=== PATIENT | female | born 1975 | race Caucasian/White ===

== ENCOUNTER 2025-06-23 15:33 | Inpatient (IN) | payer OTHER, SELFPAY ==
[2025-06-23] VITALS (14 sets, daily range): BP systolic 137–176; BP diastolic 77–89; PULSE 47–72; RESP 12–37; TEMP 36.5; O2SAT 93–100; BMI 27.3
--- NOTE | 2025-06-23 | DI.MRI.S_ITS ---
PROCEDURE: MR AB PANCREATIC/MRCP PROTOCOL INDICATIONS: Elevated liver enzymes gallstones TECHNIQUE: Coronal HASTE through the abdomen, axial 2-D FLASH in- and [id number], and breath-hold T2 FSE with fat saturation through the biliary system and pancreas. Oblique coronal and axial thin-slice HASTE, radial thick-slab HASTE centered on the extrahepatic bile ducts. Intravenous secretin: Not requested. COMPARISON: [facility], CT, CT ABDOMEN PELVIS W CON, 06/23/2025, 20:15. FINDINGS: Image quality: Diagnostic. Gallbladder: Numerous gallstones included impacted gallbladder neck stones. Gallbladder distension with gallbladder wall thickening and edema. Findings may represent acute cholecystitis. Biliary ducts: Although the biliary tree is not dilated, there are multiple small distal common duct stones. Pancreas: No ductal dilation. OTHER: Lung bases: Unremarkable. Liver: No solid mass. Spleen: Size is within normal limits. Adrenal Glands: No adrenal nodules. Kidneys and Ureters: No hydronephrosis. No solid mass. No complex renal cystic lesion which requires follow up. Stomach and Bowel: Normal colonic caliber, without significant wall thickening. Peritoneum: No abnormal intraperitoneal fluid. No free air. Ventral Wall: No hernia. Abdominal Nodes: No retroperitoneal or mesenteric adenopathy by size criteria. Vessels: Aorta and inferior vena cava are normal in size. Bones: No aggressive osseous abnormality. IMPRESSION: 1. Findings are supportive of a potential clinical diagnosis of acute cholecystitis. There are numerous gallstones with impacted stones in the gallbladder neck. There is gallbladder distension and there is gallbladder wall thickening and edema. 2. Multiple small distal common duct stones are present. There is no biliary ductal dilatation currently. Dictated by: Rod Charles M.D. on 06/24/2025 at 11:07 Approved by: Rod Charles M.D. on 06/24/2025 at 11:09
[2025-06-23 17:21] LABS: Ictotest Urine Positive (Negative)
--- NOTE | 2025-06-23 19:15 | EKG_ITS ---
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
[2025-06-23 19:27] LABS: Culture Indicated Urine Cult Not Indicated
[2025-06-23] MEDS: ONDANSETRON 4 MG/2 ML INJ IV (19:35)
--- NOTE | 2025-06-23 19:46 | DI.CT.S_ITS ---
PROCEDURE: CT ABDOMEN PELVIS W CON INDICATIONS: abd pain, RUQ worse, but tender lower quadrants as well TECHNIQUE: After the administration of intravenous contrast, axial sections acquired from the lung bases to the pubic symphysis. Coronal and sagittal reformats were performed. For radiation dose reduction, the following was used: automated exposure control, adjustment of mA and/or kV according to patient size. COMPARISON: None. FINDINGS: Image quality: Diagnostic. Lower Chest: No significant findings. ABDOMEN: Liver: No solid mass. Steatosis. Gallbladder: Dependent luminal stones without wall thickening. Biliary ducts: No biliary dilation. Pancreas: No ductal dilation. Spleen: Size is within normal limits. Adrenal Glands: No adrenal nodules. Kidneys and Ureters: No hydronephrosis. Simple left renal cyst. Stomach and Bowel: Normal colonic caliber, without significant wall thickening. Peritoneum: Dependent pelvic fluid. No free air. Ventral Wall: No significant ventral hernia. Abdominal Nodes: No retroperitoneal or mesenteric adenopathy by size criteria. Vessels: Aorta and inferior vena cava are normal in size. PELVIS: Pelvic Organs: Uterus is enlarged and lobulated. Bladder: No bladder wall thickening, accounting for underdistention. Pelvic Nodes: No enlarged lymph nodes. Miscellaneous: No inguinal hernias are seen. Bones: No aggressive osseous abnormality. IMPRESSION: Cholelithiasis without imaging appearance of cholecystitis. Enlarged lobulated uterus suggestive of fibroids. Dictated by: Zari Richardson M.D. on 06/23/2025 at 20:40 Approved by: Zari Richardson M.D. on 06/23/2025 at 20:47
[2025-06-23 19:47] LABS: Carbon Dioxide 24 mmol/L (22-32); HEMOLYSIS < 15 (0-50)
[2025-06-23 19:51] LABS: Albumin 4.3 g/dL (3.5-5.0); Albumin Globulin Ratio 1.2 (1.0-2.8); Alkaline Phosphatase 193 U/L (38-126); Blood Urea Nitrogen 14 mg/dL (7-17); Calcium 9.3 mg/dL (8.4-10.2); Chloride 104 mmol/L (98-107); Estimated Glomerular Filt Rate > 60 mL/min (>60); Globulin 3.5 g/dL (1.7-4.1); Glucose 111 mg/dL (70-99); Lipase 303 U/L (23-300); Potassium 4.0 mmol/L (3.4-5.1); Sodium 137 mmol/L (137-145); Total Protein 7.8 g/dL (6.3-8.2)
[2025-06-23 19:55] LABS: Add Manual Diff / Slide Review NO; Hematocrit 42.7 % (36-46); Hemoglobin 14.2 g/dL (12.0-16.0); Lymphocytes Absolute Auto 1600 /uL (1100-4500); Mean Corpuscular HGB Conc 33.3 % (30-36); Mean Corpuscular Hemoglobin 29.6 PG (26-34); Mean Corpuscular Volume 88.9 fL (80-100); Platelet Count 374 X10^3/uL (150-400)
[2025-06-23] MEDS: SODIUM CHLORIDE 0.9% 1,000 ML 1000 ML IV (19:55)
[2025-06-23 19:57] LABS: Alanine Aminotransferase 829 IU/L (<35)
[2025-06-23 20:01] LABS: Magnesium 1.8 mg/dL (1.6-2.3)
--- NOTE | 2025-06-23 20:33 | ED.GENADULT ---
HPI - General Adult General Chief complaint: Abdominal Pain Stated complaint: abd pain, nausea, vomiting Time Seen by Provider: 06/23/25 19:09 Source: patient Mode of arrival: Family Vehicle History of Present Illness HPI narrative: 50-year-old woman with history of alcohol use disorder who has been sober since October presents complaining of severe abdominal pain. She notes she has lost 70 lb since she has stopped drinking and made significant dietary changes. She complains of episodes of recurrent bloating and right upper quadrant pain. Occurs after eating non fat foods as well as fatty foods. Over the last 4 days that is significantly worse with dry heaving but no overt vomiting. She describes increasing abdominal bloating and significant tenderness. No fevers, she is passing gas. She has not had this evaluated at all in the year that she has been having symptoms Related Data Home Medications ?Medication ?Instructions ?Recorded ?Confirmed fluconazole 150 mg tablet mg PO 06/23/25 06/23/25 mupirocin 2 % topical ointment 1 applic topical 3XD 06/23/25 06/23/25 omeprazole 20 mg capsule,delayed 20 mg PO DAILY 06/23/25 06/23/25 release triamcinolone acetonide 0.025 % 1 applic topical BID 06/23/25 06/23/25 topical cream Allergies Allergy/AdvReac Type Severity Reaction Status Date / Time bacitracin (From Neosporin AdvReac Mild Verified 06/23/25 19:34 ([id number])) neomycin (From Neosporin AdvReac Mild Verified 06/23/25 19:34 ([id number])) polymyxin B (From Neosporin AdvReac Mild Verified 06/23/25 19:34 ([id number])) Review of Systems Review of Systems Narrative: Pertinent positive and negative findings as per HPI Patient History Medical History (Updated 06/23/25 @ 23:03 by Alex Choe DO) Alcoholism Exam Initial Vital Signs Initial Vital Signs: Vital Signs Temperature 97.7 F 06/23/25 15:57 Pulse Rate 51 L 06/23/25 15:57 Respiratory Rate 16 06/23/25 15:57 Blood Pressure 137/77 06/23/25 15:57 Pulse Oximetry 98 06/23/25 15:57 Oxygen Delivery Method Room Air 06/23/25 15:57 General: Healthy appearing, in significant pain but Able to give a complete and coherent history. Well-nourished well-developed HEENT: Moist mucous membranes, normal sclera with reactive pupils, Respiratory: Lungs are clear to auscultation, no wheezing no rales no rhonchi. Full and symmetrical air movement Cardiac: Regular rate and rhythm no murmurs no bruits Abdomen: Soft, significant right upper quadrant tenderness without rebound or guarding. Mild overall distention and moderate pain in the lower pelvic area bilaterally. No flank pain Skin: Warm and dry, no rashes Neurologic: Grossly neurologically intact with no obvious asymmetries or abnormalities Extremities: No trauma, well perfused Psych: Cooperative, appropriate insight and affect Course Orders Ordered: ED Orders 06/23/25 16:51 EKG-12 Lead Stat 06/23/25 17:06 Ictotest Urine Stat Urine Microscopic Stat 06/23/25 19:28 Complete Blood Count AUTO DIFF Stat Comprehensive Metabolic Panel Stat Lipase Stat 06/23/25 19:33 Magnesium Stat 06/23/25 19:46 CT abdomen pelvis w con Stat Hydromorphone HCl (Hydromorphone Hcl 0.5 Mg/0.5 Ml Syringe) 0.5 mg IV Q15MIN PRN PRN Reason: Pain, Last Admin: 06/23/25 22:16 Dose: 0.5 mg Documented By: Admin: 06/23/25 19:55 Dose: 0.5 mg Documented By: CHELO Ondansetron HCl (Ondansetron 4 Mg/2 Ml Inj) 4 mg IV NOW PRN PRN Reason: Nausea And Vomiting Last Admin: 06/23/25 19:35 Dose: 4 mg Documented By: CHELO Ondansetron HCl (Ondansetron 4 Mg Odt) 4 mg PO NOW PRN PRN Reason: Nausea And Vomiting Discontinued Medications Sodium Chloride (Normal Saline 0.9%) 1,000 mls @ 1,000 mls/hr IV BOLUS ONE Stop: 06/23/25 20:44 Last Infusion: 06/23/25 21:09 Dose: Infused Documented By: Admin: 06/23/25 19:55 Dose: 1,000 mls/hr Documented By: CHELO Ondansetron HCl (Ondansetron 4 Mg/2 Ml Inj) 4 mg IV NOW ONE Stop: 06/23/25 19:46 Last Admin: 06/23/25 22:30 Dose: Not Given Documented By: [facility] Vital Signs Vital signs: Vital Signs - 8 hr 06/23/25 15:57 06/23/25 19:07 06/23/25 19:07 Temperature 97.7 F Pulse Rate 51 L 55 L Respiratory Rate 16 18 Blood Pressure 137/77 172/83 H Pulse Oximetry 98 93 Oxygen Delivery Method Room Air Room Air 06/23/25 19:30 06/23/25 19:50 06/23/25 19:50 Temperature Pulse Rate 72 50 L Respiratory Rate 37 H 16 Blood Pressure 171/88 H Pulse Oximetry 100 99 Oxygen Delivery Method 06/23/25 20:00 06/23/25 20:01 06/23/25 20:01 Temperature Pulse Rate 53 L 51 L Respiratory Rate 31 H 24 Blood Pressure 158/79 H Pulse Oximetry 99 100 Oxygen Delivery Method 06/23/25 20:28 06/23/25 20:28 06/23/25 20:30 Temperature Pulse Rate 50 L 52 L Respiratory Rate 12 18 Blood Pressure 168/87 H Pulse Oximetry 99 99 Oxygen Delivery Method 06/23/25 20:30 06/23/25 21:00 06/23/25 21:00 Temperature Pulse Rate 49 L Respiratory Rate 23 Blood Pressure 166/89 H 168/86 H Pulse Oximetry 96 Oxygen Delivery Method Room Air 06/23/25 21:30 06/23/25 21:30 Temperature Pulse Rate 47 L Respiratory Rate 15 Blood Pressure 163/77 H Pulse Oximetry 96 Oxygen Delivery Method Room Air Medical Decision Making Lab Data 06/23/25 19:28 06/23/25 19:28 Labs: Lab Results 06/23/25 06/23/25 06/23/25 Range/Units 17:06 19:28 19:33 WBC 10.5 (4.5-11.0) X10^3/uL RBC 4.81 (4.0-5.2) X10^6/uL Hgb 14.2 (12.0-16.0) g/dL Hct 42.7 (36-46) % MCV 88.9 (80-100) fL MCH 29.6 (26-34) PG MCHC 33.3 (30-36) % RDW 14.4 (11.6-14.8) % Plt Count 374 (150-400) X10^3/uL Neut % (Auto) 76.2 H (50-75) % Lymph % (Auto) 15.7 L (25-40) % [place] % (Auto) 6.9 (3-14) % Eos % (Auto) 0.5 L (2-4) % Baso % (Auto) 0.7 (0-2) % Neut # (Auto) 8000 H (4323-5169) /uL Lymph # (Auto) 1600 (0730-7384) /uL [place] # (Auto) 700 (0-900) /uL Eos # (Auto) 0 (0-450) /uL Baso # (Auto) 100 (0-100) /uL Sodium 137 (137-145) mmol/L Potassium 4.0 (3.4-5.1) mmol/L Chloride 104 (98-107) mmol/L Carbon Dioxide 24 (22-32) mmol/L BUN 14 (7-17) mg/dL Creatinine 0.83 (0.52-1.04) mg/dL Estimated GFR > 60 (>60) mL/min BUN/Creatinine Ratio 16.9 (6-22) Glucose 111 H (70-99) mg/dL Calcium 9.3 (8.4-10.2) mg/dL Magnesium 1.8 (1.6-2.3) mg/dL Total Bilirubin 2.9 H (0.2-1.3) mg/dL AST 640 H (14-36) IU/L ALT 829 H (<35) IU/L Alkaline Phosphatase 193 H (38-126) U/L Total Protein 7.8 (6.3-8.2) g/dL Albumin 4.3 (3.5-5.0) g/dL Globulin 3.5 (1.7-4.1) g/dL Albumin/Globulin Ratio 1.2 (1.0-2.8) Lipase 303 H (23-300) U/L Ur Bilirubin Confirm Positive H (Negative) Urine RBC 0-1/hpf (0-5/HPF) Urine WBC 0-1/hpf (0-5/HPF) Ur Squamous Epith Cells 1-5 /hpf (0-5/HPF) Urine Bacteria Moderate (10-30) H (None) Urine Mucus 1+ H (Negative) Ur Culture Indicated? Cult not indicated Vol Urine Centrifuged 10ml (spun) Point of Care Testing Test Results Negative Urine Dip Bedside Urine Glucose 100 mg/dl Bedside Urine Bilirubin ++ 2 Bedside Urine Ketone +/- 5 Urine Specific [place] 1.025 Bedside Urine Occult Blood - Negative Bedside Urine pH 6.0 Bedside Urine Protein +/- 15 Bedside Urine Urobilinogen 1+ 2mg Bedside Urine Nitrite - Negative Bedside Urine Leukocytes +/- 15 Esterase Point of care testing: Point of Care Testing Test Results Negative Urine Dip Bedside Urine Glucose 100 mg/dl Bedside Urine Bilirubin ++ 2 Bedside Urine Ketone +/- 5 Urine Specific [place] 1.025 Bedside Urine Occult Blood - Negative Bedside Urine pH 6.0 Bedside Urine Protein +/- 15 Bedside Urine Urobilinogen 1+ 2mg Bedside Urine Nitrite - Negative Bedside Urine Leukocytes +/- 15 Esterase MDM Narrative Medical decision making narrative: CC: Abdominal pain Complicating co-morbidities: Alcohol use disorder no alcohol since October, lb weight loss with diet and lifestyle changes Data collected from: patient Medical records reviewed: None are available Differential considered: Gallbladder disease, bowel obstruction, neoplastic process, doubt pelvic inflammatory disease, colitis Exam documented above, pertinent findings include: Abdomen is distended, she has significant in the right upper quadrant without rebound or guarding less tender but still notable in both left and right lower quadrant. Lab Test results independently reviewed as above. Pertinent findings: CBC is unremarkable, no leukocytosis or anemia Metabolic panel shows normal renal function Magnesium normal at 1.8 Liver studies were significantly abnormal with bilirubin at 2.9, AST is 640, ALT at 8:29 a.m., alk-phos of 193. Lipase is minimally elevated at 303 Urine has bilirubin bacteria and mucus, I do not suspect urinary tract infection at this time Urine test is negative Independently reviewed EKG: EKG shows sinus bradycardia at a rate of 50 with no ischemic changes Imaging studies independently reviewed: CT scan shows cholelithiasis without appearance of acute cholecystitis. There is no biliary or ductal dilatation Presumed enlarged uterus with multiple fibroids Consultations: Care is reviewed with , general surgery. He is evaluating patient in the emergency department Treatments: Fluid, Zofran, Dilaudid Discussion: Patient was evaluated by Dr. Choe, he discussed patient with the hospitalist, she will be admitted to the hospitalist service with surgical consultation Discharge Plan Departure Patient Disposition: Admitted As Inpatient Clinical Impression: Gallstones, Elevated liver enzymes Fibroid uterus Qualifiers: Uterine leiomyoma location: unspecified location Qualified Code(s): D25.9 - Leiomyoma of uterus, unspecified
--- NOTE | 2025-06-23 22:52 | PM.HP.IH.1 ---
History of Present Illness History of Present Illness Date Patient Seen: 06/23/25 Time Patient Seen: 10:30 Date of Onset of Symptoms: 06/16/25 Chief complaint: abd pain, nausea, vomiting Narrative: Patient is a 50-year-old white female presents to the emergency room with abdominal pain right upper quadrant which is a sharp stabbing pain with radiation back to Bactrim going on for approximately 7 days she states she has had similar episodes for over a year states all foods were given her problems she is quite difficult historian. She admits to nausea vomiting denies any hematemesis denies any melanotic stools denies any acholic stools. Patient was worked up was noted to have a CT scan showing a fatty liver gallbladder with stones with an enlarged uterus with a uterine fibroids no acute inflammatory changes are noted in the gallbladder no shawna cholecystic fluid is noted. Patient does have a history of alcoholism states that she was drinking heavily for over 20 years was drinking a 5th +2 bottles of wine per day states she stopped in October of 2024. Admitting laboratory shows WBC of 10.5 hemoglobin is 14.2 hematocrit is 42.7 platelets are 374,000 sodium is 137 potassium 4.0 chloride 104 bicarb is 24 BUN 14 creatinine 0.83 random blood sugar is 111 total bilirubin is 2.9 AST is 640 ALT is 829 alkaline phos is 193 lipase is 303. Allergies: Bacitracin Medications: Fluconazole, topical ointments, omeprazole. Past medical history: 1 para 0 miscarriage 1, obesity, history of alcoholism. Patient denies any other heart lungs digestive musculoskeletal neurological seizure disorder psychiatric problems risks are Infectious diseases HIV or AIDS. Past surgical history: Right wrist tendon repair Social history: Patient works on the [employer] system smokes 1 pack per day times 25 years. Seven years ago, history of alcohol abuse was drinking 1/5 and 2 bottles of wine per day times 20 years. October of 2024, denies any recreational drug usage. Vitals: Temperature 97.7? pulse 47 respirations 15 BP is 163/77 SaO2 is 96% on room air. Patient is 5 ft 9 in tall 185 lb patient states she has lost 70 lb since she stopped drinking alcohol. Head is normocephalic eyes PERRLA EOMI is intact nares are clear septum is midline oropharyngeal cavity is in moderate repair. Heart regular rate and rhythm without murmurs. Lungs clear to auscultation no rales rhonchi or wheezes noted. Abdomen is soft with hypoactive bowel sounds no masses or peritoneal signs patient has a slight Stoddard's sign due to obesity feels like she may have a slightly enlarged liver. Musculoskeletal moderate muscle tone and strength equal bilaterally no gross deficits elicited. 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 Also check coag serum ammonia test. All questions were answered patient satisfaction. If cholecystitis cholelithiasis discussed surgical removal procedure risks and complications were fully explained including risk for cardiopulmonary depression infection bleeding bowel injury bile duct injury and conversion to open procedure the patient understands and consents we will continue with the workup. We will admit to the hospitalist for medical management. Meds Home Medications and Allergies Home Medications ?Medication ?Instructions ?Recorded ?Confirmed ?Type fluconazole 150 mg tablet mg PO 06/23/25 06/23/25 History mupirocin 2 % topical ointment 1 applic topical 3XD 06/23/25 06/23/25 History omeprazole 20 mg capsule,delayed 20 mg PO DAILY 06/23/25 06/23/25 History release triamcinolone acetonide 0.025 % 1 applic topical BID 06/23/25 06/23/25 History topical cream Allergies Allergy/AdvReac Type Severity Reaction Status Date / Time bacitracin (From Neosporin AdvReac Mild Verified 06/23/25 19:34 ([id number])) neomycin (From Neosporin AdvReac Mild Verified 06/23/25 19:34 ([id number])) polymyxin B (From Neosporin AdvReac Mild Verified 06/23/25 19:34 ([id number])) Exam Vital Signs (past 8 hours): - 06/23/25 15:57 06/23/25 19:07 06/23/25 19:07 Temperature 97.7 F Pulse Rate 51 L 55 L Respiratory Rate 16 18 Blood Pressure 137/77 172/83 H Pulse Oximetry 98 93 Oxygen Delivery Method Room Air Room Air 06/23/25 19:30 06/23/25 19:50 06/23/25 19:50 Temperature Pulse Rate 72 50 L Respiratory Rate 37 H 16 Blood Pressure 171/88 H Pulse Oximetry 100 99 Oxygen Delivery Method 06/23/25 20:00 06/23/25 20:01 06/23/25 20:01 Temperature Pulse Rate 53 L 51 L Respiratory Rate 31 H 24 Blood Pressure 158/79 H Pulse Oximetry 99 100 Oxygen Delivery Method 06/23/25 20:28 06/23/25 20:28 06/23/25 20:30 Temperature Pulse Rate 50 L 52 L Respiratory Rate 12 18 Blood Pressure 168/87 H Pulse Oximetry 99 99 Oxygen Delivery Method 06/23/25 20:30 06/23/25 21:00 06/23/25 21:00 Temperature Pulse Rate 49 L Respiratory Rate 23 Blood Pressure 166/89 H 168/86 H Pulse Oximetry 96 Oxygen Delivery Method Room Air 06/23/25 21:30 06/23/25 21:30 Temperature Pulse Rate 47 L Respiratory Rate 15 Blood Pressure 163/77 H Pulse Oximetry 96 Oxygen Delivery Method Room Air Oxygen Delivery Method Room Air Objective Labs 06/23/25 19:28 06/23/25 19:28 Labs: Laboratory Results - last 24 hr 06/23/25 06/23/25 06/23/25 17:06 19:28 19:33 WBC 10.5 RBC 4.81 Hgb 14.2 Hct 42.7 MCV 88.9 MCH 29.6 MCHC 33.3 RDW 14.4 Plt Count 374 Neut % (Auto) 76.2 H Lymph % (Auto) 15.7 L [place] % (Auto) 6.9 Eos % (Auto) 0.5 L Baso % (Auto) 0.7 Neut # (Auto) 8000 H Lymph # (Auto) 1600 [place] # (Auto) 700 Eos # (Auto) 0 Baso # (Auto) 100 Sodium 137 Potassium 4.0 Chloride 104 Carbon Dioxide 24 BUN 14 Creatinine 0.83 Estimated GFR > 60 BUN/Creatinine Ratio 16.9 Glucose 111 H Calcium 9.3 Magnesium 1.8 Total Bilirubin 2.9 H AST 640 H ALT 829 H Alkaline Phosphatase 193 H Total Protein 7.8 Albumin 4.3 Globulin 3.5 Albumin/Globulin Ratio 1.2 Lipase 303 H Ur Bilirubin Confirm Positive H Urine RBC 0-1/hpf Urine WBC 0-1/hpf Ur Squamous Epith Cells 1-5 /hpf Urine Bacteria Moderate (10-30) H Urine Mucus 1+ H Ur Culture Indicated? Cult not indicated Vol Urine Centrifuged 10ml (spun) Assessment & Plan Time-Based Coding :: [TOTAL MINUTES] spent with patient and on the chart (including review of chart, obtaining history, exam, reviewing outside data, placing orders, documenting exam and treatment plan, and counseling patient) on [DATE]. PROFEE Nuclear Supervising Operator Document charge(s): Yes
--- NOTE | 2025-06-23 23:24 | PM.HP.1 ---
History of Present Illness History of Present Illness Date Patient Seen: 06/23/25 Time Patient Seen: 23:24 Chief complaint: abd pain, nausea, vomiting Narrative: 50-year-old female with past medical history of alcohol abuse but been sober since October 2024, GERD presents with complaint of abdominal pain. Per the patient's report, the patient has lost about 70 pounds since October of this year. The patient however started to have acute onset of abdominal pain that started a few days ago. The patient described her pain as right upper quadrant, severe, sharp, associate with food intake and nonradiating. The patient does have some increasing abdominal bloating associated with some nausea and dry heaving. The patient states that she has been having this pain intermittently over the last few months but has not been evaluated. Otherwise the patient denies any fever, chills, chest pain, shortness of breath, dysuria or GI bleed. In our emergency room, the patient was hemodynamically stable. Labs were relatively benign except for a bilirubin of 2.9 AST of 640 ALT of 829 alk phos of 193 lipase of 303. UA is negative for UTI. CT abdomen shows cholelithiasis without appearance of acute cholecystitis there is no biliary or ductal dilatation Dr. Choe from general surgery was consulted and recommend that we admit the patient for abdominal ultrasound and also MRCP to rule out common duct pathology in the morning. He also would want to check serum ammonia and test. Zosyn was also empirically started. [facility] Medical History (Updated 06/23/25 @ 23:03 by Alex Choe DO) Alcoholism Meds Home Medications and Allergies Home Medications ?Medication ?Instructions ?Recorded ?Confirmed ?Type fluconazole 150 mg tablet mg PO 06/23/25 06/23/25 History mupirocin 2 % topical ointment 1 applic topical 3XD 06/23/25 06/23/25 History omeprazole 20 mg capsule,delayed 20 mg PO DAILY 06/23/25 06/23/25 History release triamcinolone acetonide 0.025 % 1 applic topical BID 06/23/25 06/23/25 History topical cream Allergies Allergy/AdvReac Type Severity Reaction Status Date / Time bacitracin (From Neosporin AdvReac Mild Verified 06/23/25 19:34 ([id number])) neomycin (From Neosporin AdvReac Mild Verified 06/23/25 19:34 ([id number])) polymyxin B (From Neosporin AdvReac Mild Verified 06/23/25 19:34 ([id number])) Review of Systems Review of Systems ROS: Yes All systems reviewed with the patient and are negative except as otherwise documented Exam Vital Signs (past 8 hours): - 06/23/25 15:57 06/23/25 19:07 06/23/25 19:07 Temperature 97.7 F Pulse Rate 51 L 55 L Respiratory Rate 16 18 Blood Pressure 137/77 172/83 H Pulse Oximetry 98 93 Oxygen Delivery Method Room Air Room Air 06/23/25 19:30 06/23/25 19:50 06/23/25 19:50 Temperature Pulse Rate 72 50 L Respiratory Rate 37 H 16 Blood Pressure 171/88 H Pulse Oximetry 100 99 Oxygen Delivery Method 06/23/25 20:00 06/23/25 20:01 06/23/25 20:01 Temperature Pulse Rate 53 L 51 L Respiratory Rate 31 H 24 Blood Pressure 158/79 H Pulse Oximetry 99 100 Oxygen Delivery Method 06/23/25 20:28 06/23/25 20:28 06/23/25 20:30 Temperature Pulse Rate 50 L 52 L Respiratory Rate 12 18 Blood Pressure 168/87 H Pulse Oximetry 99 99 Oxygen Delivery Method 06/23/25 20:30 06/23/25 21:00 06/23/25 21:00 Temperature Pulse Rate 49 L Respiratory Rate 23 Blood Pressure 166/89 H 168/86 H Pulse Oximetry 96 Oxygen Delivery Method Room Air 06/23/25 21:30 06/23/25 21:30 Temperature Pulse Rate 47 L Respiratory Rate 15 Blood Pressure 163/77 H Pulse Oximetry 96 Oxygen Delivery Method Room Air Oxygen Delivery Method Room Air Narrative Exam Narrative: Physical Exam: GENERAL: The patient is not in any acute distressed. Awake and alert. HEENT: Nonicteric sclerae, PERRLA, EOMI. Oropharynx clear. Moist mucous membranes. Conjunctivae appear well perfused. HEART: Regular rate and rhythm without murmurs. No lower extremities edema. LUNGS: Clear to auscultation bilaterally. No wheezing, crackles or rhonchi ABDOMEN: Soft, positive bowel sounds, RUQ tenderness without rebound SKIN: No rash, no excessive bruising, petechiae, or purpura. NEUROLOGIC: AxO x 3. Cranial nerves II-XII intact without motor/sensory deficit. Objective Labs 06/23/25 19:28 06/23/25 19:28 Labs: Laboratory Results - last 24 hr 06/23/25 06/23/25 06/23/25 17:06 19:28 19:33 WBC 10.5 RBC 4.81 Hgb 14.2 Hct 42.7 MCV 88.9 MCH 29.6 MCHC 33.3 RDW 14.4 Plt Count 374 Neut % (Auto) 76.2 H Lymph % (Auto) 15.7 L [place] % (Auto) 6.9 Eos % (Auto) 0.5 L Baso % (Auto) 0.7 Neut # (Auto) 8000 H Lymph # (Auto) 1600 [place] # (Auto) 700 Eos # (Auto) 0 Baso # (Auto) 100 Sodium 137 Potassium 4.0 Chloride 104 Carbon Dioxide 24 BUN 14 Creatinine 0.83 Estimated GFR > 60 BUN/Creatinine Ratio 16.9 Glucose 111 H Calcium 9.3 Magnesium 1.8 Total Bilirubin 2.9 H AST 640 H ALT 829 H Alkaline Phosphatase 193 H Total Protein 7.8 Albumin 4.3 Globulin 3.5 Albumin/Globulin Ratio 1.2 Lipase 303 H Ur Bilirubin Confirm Positive H Urine RBC 0-1/hpf Urine WBC 0-1/hpf Ur Squamous Epith Cells 1-5 /hpf Urine Bacteria Moderate (10-30) H Urine Mucus 1+ H Ur Culture Indicated? Cult not indicated Vol Urine Centrifuged 10ml (spun) Assessment & Plan Assessment & Plan narrative: Possible acute pancreatitis related to gallstone. Admit the patient to medical inpatient. NPO. IV fluid. Pain control. IV antiemetics.CT abdomen shows cholelithiasis without appearance of acute cholecystitis there is no biliary or ductal dilatation Dr. Choe from general surgery was consulted and recommend that we admit the patient for abdominal ultrasound and also MRCP to rule out common duct pathology in the morning. He also would want to check serum ammonia and test. Zosyn was also empirically started. Appreciate further management and input per general surgery. Elevated bilirubin and transaminitis. Plan and management as above. Continue to monitor bilirubin and LFTs. History of alcohol abuse. Patient states that she has been sober for the last 8 months. Monitor for now. GERD. Resume home PPI. DVT prophylaxis SCDs. CODE STATUS full code. Disposition likely home in 2 to 3 days - As the provider of this telehealth evaluation, requested by the patient's evaluating physician, I attest that I introduced myself to the patient, provided my credentials and determined that telemedicine via a real-time, 2 way interactive audio and video platform is an appropriate and effective means of providing this service. - I reviewed the patient's chart and had a discussion with the member of the patient's treatment team. - The patient and I mutually agreed with continuation of this evaluation via telemedicine. The patient consented for the telemedicine evaluation. - This virtual encounter was taken place from [place] by Dr. Steven Strong. The patient was evaluated at [facility]. The encounter was approximately 35 minutes. The nurse was present during the entire time of the encounter and was able to assists with exam/stethoscope. Time-Based Coding :: [TOTAL MINUTES] spent with patient and on the chart (including review of chart, obtaining history, exam, reviewing outside data, placing orders, documenting exam and treatment plan, and counseling patient) on [DATE].
[2025-06-23] MEDS: PIPERACILLIN/TAZO 4.5 GM in SODIUM CHLORIDE 0.9% 100 ML IV (23:39)
[2025-06-24] MEDS: ONDANSETRON 4 MG/2 ML INJ IV ×2 (00:30→05:53)
[2025-06-24] MEDS: SODIUM CHLORIDE 0.9% 1,000 ML 125 ML IV ×4 (00:43→18:42)
[2025-06-24 01:21] VITALS: BP 164/77; PULSE 45; RESP 16; TEMP 36.5; O2SAT 97
[2025-06-24] MEDS: MORPHINE 4 MG/ML INJ 3 MG IV ×2 (02:50→05:53)
[2025-06-24] MEDS: PIPERACILLIN/TAZO 3.375 GM in SODIUM CHLORIDE 0.9% 100 ML IV ×2 (02:51→11:38)
[2025-06-24 05:00] VITALS: BP 139/77; PULSE 46; RESP 16; TEMP 36.6; O2SAT 94
[2025-06-24 07:35] LABS: Hematocrit 40.0 % (36-46); Hemoglobin 13.5 g/dL (12.0-16.0); Mean Corpuscular HGB Conc 33.8 % (30-36); Mean Corpuscular Hemoglobin 30.0 PG (26-34); Mean Corpuscular Volume 88.7 fL (80-100); Platelet Count 347 X10^3/uL (150-400)
[2025-06-24 07:38] LABS: INR 1.1 (0.9-1.3); Prothrombin Time 12.4 SECONDS (9.4-12.5)
[2025-06-24 07:41] LABS: PTT Partial Thromboplastin Tim 30 SECONDS (25.1-36.5)
[2025-06-24 07:49] LABS: Ammonia (NH3) < 9 umol/L (9-30)
[2025-06-24 07:50] LABS: Alanine Aminotransferase 630 IU/L (<35); Albumin 3.8 g/dL (3.5-5.0); Albumin Globulin Ratio 1.2 (1.0-2.8); Alkaline Phosphatase 172 U/L (38-126); Amylase 104 U/L (30-110); Blood Urea Nitrogen 12 mg/dL (7-17); Calcium 8.7 mg/dL (8.4-10.2); Carbon Dioxide 20 mmol/L (22-32); Chloride 107 mmol/L (98-107); Estimated Glomerular Filt Rate > 60 mL/min (>60); Globulin 3.1 g/dL (1.7-4.1); Glucose 104 mg/dL (70-99); HEMOLYSIS < 15 (0-50); Potassium 4.4 mmol/L (3.4-5.1); Sodium 138 mmol/L (137-145); Total Protein 6.9 g/dL (6.3-8.2)
[2025-06-24 08:05] VITALS: BP 114/78; PULSE 52; RESP 18; TEMP 35.9; O2SAT 96
[2025-06-24] MEDS: SODIUM CHLORIDE 0.9% FLUSH 10 ML IV ×2 (09:52→21:59)
--- NOTE | 2025-06-24 09:56 | P.PN_ITS ---
Subjective Subjective Date Patient Seen: 06/24/25 Time Patient Seen: 09:20 Interval history: Patient is resting comfortably in bed abdominal pain is slightly improved. Patient is scheduled for gallbladder ultrasound and also MRCP for elevated liver enzymes and bilirubin. Discussed with patient the findings we will evaluate if continues to have problems may warrant laparoscopic cholecystectomy. If common duct obstruction may need transfer for ERCP. Patient's morning laboratory shows WBC is elevated at 13.3 patient is on IV antibiotics. Hemoglobin is 13.5 hematocrit is 40.0 platelets are 347,000 PT is 12.4 PTT is 30 sodium is 138 potassium 4.4 chloride 1 7 bicarb is 20 BUN of 12 creatinine 0.73 random blood sugar is 104. Total bilirubin is decreased to 2.2 AST is decreased to 326 ALT is decreased to 630 alkaline phosphatase decreased to 172 amylase is normal at 104 decreased. Vitals: Temperature is 96.7? pulse 52 respirations 18 BP is 114/78 SaO2 is 96% on room air Heart regular rate and rhythm without murmurs. Lungs are diminished in the bases poor inspiratory and expiratory effort poor chest wall motion noted. Abdomen is soft nondistended patient has no right upper quadrant pain she is pointing to right lower quadrant pain and lateral abdomen no rebound or guarding. Impression: Abdominal pain with elevated LFTs and bilirubin rule out cholecystitis cholelithiasis rule out common duct pathology History of alcoholism stopped October of 2024 Plan: Patient is scheduled for abdominal ultrasound and also MRCP to evaluate for ductal and pancreatic pathology. If cholecystitis cholelithiasis discussed with the patient laparoscopic cholecystectomy procedure risks and complications were fully explained including risk for cardiopulmonary depression infection bleeding bowel injury and conversion to open procedure the patient will be followed closely all questions were answered to patient's satisfaction. Exam Vital Signs (past 8 hours): - 06/24/25 05:00 06/24/25 08:05 Temperature 97.8 F 96.7 F L Pulse Rate 46 L 52 L Respiratory Rate 16 18 Blood Pressure 139/77 114/78 Pulse Oximetry 94 96 Oxygen Flow Rate 0 0 Oxygen Delivery Method Room Air Oxygen Flow Rate 0 Objective Labs 06/24/25 06:58 06/24/25 06:58 Labs: Laboratory Results - last 24 hr 06/23/25 06/23/25 06/23/25 17:06 19:28 19:33 WBC 10.5 RBC 4.81 Hgb 14.2 Hct 42.7 MCV 88.9 MCH 29.6 MCHC 33.3 RDW 14.4 Plt Count 374 Neut % (Auto) 76.2 H Lymph % (Auto) 15.7 L [place] % (Auto) 6.9 Eos % (Auto) 0.5 L Baso % (Auto) 0.7 Neut # (Auto) 8000 H Lymph # (Auto) 1600 [place] # (Auto) 700 Eos # (Auto) 0 Baso # (Auto) 100 PT INR APTT Sodium 137 Potassium 4.0 Chloride 104 Carbon Dioxide 24 BUN 14 Creatinine 0.83 Estimated GFR > 60 BUN/Creatinine Ratio 16.9 Glucose 111 H Calcium 9.3 Magnesium 1.8 Total Bilirubin 2.9 H AST 640 H ALT 829 H Alkaline Phosphatase 193 H Ammonia Total Protein 7.8 Albumin 4.3 Globulin 3.5 Albumin/Globulin Ratio 1.2 Amylase Lipase 303 H Ur Bilirubin Confirm Positive H Urine RBC 0-1/hpf Urine WBC 0-1/hpf Ur Squamous Epith Cells 1-5 /hpf Urine Bacteria Moderate (10-30) H Urine Mucus 1+ H Ur Culture Indicated? Cult not indicated Vol Urine Centrifuged 10ml (spun) 06/24/25 06/24/25 06:58 Unknown WBC 13.3 H RBC 4.51 Hgb 13.5 Hct 40.0 MCV 88.7 MCH 30.0 MCHC 33.8 RDW 14.3 Plt Count 347 Neut % (Auto) Lymph % (Auto) [place] % (Auto) Eos % (Auto) Baso % (Auto) Neut # (Auto) Lymph # (Auto) [place] # (Auto) Eos # (Auto) Baso # (Auto) PT 12.4 INR 1.1 APTT 30 Sodium 138 Potassium 4.4 Chloride 107 Carbon Dioxide 20 L BUN 12 Creatinine 0.73 Estimated GFR > 60 BUN/Creatinine Ratio 16.4 Glucose 104 H Calcium 8.7 Magnesium Total Bilirubin 2.2 H AST 326 H ALT 630 H Alkaline Phosphatase 172 H Ammonia < 9 L Total Protein 6.9 Albumin 3.8 Globulin 3.1 Albumin/Globulin Ratio 1.2 Amylase 104 Lipase Ur Bilirubin Confirm Urine RBC Urine WBC Ur Squamous Epith Cells Urine Bacteria Urine Mucus Ur Culture Indicated? Vol Urine Centrifuged [facility] Medical History (Updated 06/23/25 @ 23:03 by Alex Choe DO) Alcoholism Social History household members: family Smoking Status: Former smoker alcohol intake: former Assessment & Plan Time-Based Coding :: [TOTAL MINUTES] spent with patient and on the chart (including review of chart, obtaining history, exam, reviewing outside data, placing orders, documenting exam and treatment plan, and counseling patient) on [DATE]. [employer] Document charge(s): Yes
--- NOTE | 2025-06-24 10:50 | P.PN_ITS ---
Subjective Subjective Date Patient Seen: 06/24/25 Interval history: Chief complaint: Acute abdominal pain elevated liver enzymes secondary to common bile duct stones History of present illness: 06/23: 50-year-old female with past medical history of alcohol abuse but been sober since October 2024, GERD presents with complaint of abdominal pain. Per the patient's report, the patient has lost about 70 pounds since October of this year. The patient however started to have acute onset of abdominal pain that started a few days ago. The patient described her pain as right upper quadrant, severe, sharp, associate with food intake and nonradiating. The patient does have some increasing abdominal bloating associated with some nausea and dry heaving. The patient states that she has been having this pain intermittently over the last few months but has not been evaluated. Otherwise the patient denies any fever, chills, chest pain, shortness of breath, dysuria or GI bleed. In our emergency room, the patient was hemodynamically stable. Labs were relatively benign except for a bilirubin of 2.9 AST of 640 ALT of 829 alk phos of 193 lipase of 303. UA is negative for UTI. CT abdomen shows cholelithiasis without appearance of acute cholecystitis there is no biliary or ductal dilatation Dr. Choe from general surgery was consulted and recommend that we admit the patient for abdominal ultrasound and also MRCP to rule out common duct pathology in the morning. He also would want to check serum ammonia and test. Zosyn was also empirically started. Hospital course: 06/24: MRCP demonstrates multiple distal common bile duct stones acute cholecystitis with gallbladder distention gallbladder wall thickening and edema and impacted gallstones in the gallbladder neck Review of systems: No chest pain shortness for No urinary symptom No neurologic Physical exam: Middle-aged female appearing ill and pale HEENT unremarkable Heart rate and rhythm regular Lungs clear Abdomen diffuse tenderness but greatest tenderness right upper quadrant scant bowel sounds distant Extremities no edema Assessment and plan: Acute cholecystitis with acute choledocholithiasis gallstones in the bladder neck * Transfer for ERCP cholecystectomy can be done either at the site or ERCP and transfer back and cholecystectomy here * IV antibiotic coverage * No current signs of acute cholangitis but this could develop DVT prophylaxis: * Not indicated except SCDs Disposition: * Inpatient will probably require a 4-5 day or longer hospitalization for recovery this extensive bile cannula pathology Time based billin minutes were involved in the management of this patient including [id number] evaluation physical evaluation of the patient in her presence multiple consultations with General surgery referral out for transfer for ERCP direct view of imaging and objective laboratory findings Exam Vital Signs (past 8 hours): - 06/24/25 05:00 06/24/25 08:05 Temperature 97.8 F 96.7 F L Pulse Rate 46 L 52 L Respiratory Rate 16 18 Blood Pressure 139/77 114/78 Pulse Oximetry 94 96 Oxygen Flow Rate 0 0 Oxygen Delivery Method Room Air Oxygen Flow Rate 0 Objective Labs 06/24/25 06:58 06/24/25 06:58 Labs: Laboratory Results - last 24 hr 06/23/25 06/23/25 06/23/25 17:06 19:28 19:33 WBC 10.5 RBC 4.81 Hgb 14.2 Hct 42.7 MCV 88.9 MCH 29.6 MCHC 33.3 RDW 14.4 Plt Count 374 Neut % (Auto) 76.2 H Lymph % (Auto) 15.7 L [place] % (Auto) 6.9 Eos % (Auto) 0.5 L Baso % (Auto) 0.7 Neut # (Auto) 8000 H Lymph # (Auto) 1600 [place] # (Auto) 700 Eos # (Auto) 0 Baso # (Auto) 100 PT INR APTT Sodium 137 Potassium 4.0 Chloride 104 Carbon Dioxide 24 BUN 14 Creatinine 0.83 Estimated GFR > 60 BUN/Creatinine Ratio 16.9 Glucose 111 H Calcium 9.3 Magnesium 1.8 Total Bilirubin 2.9 H AST 640 H ALT 829 H Alkaline Phosphatase 193 H Ammonia Total Protein 7.8 Albumin 4.3 Globulin 3.5 Albumin/Globulin Ratio 1.2 Amylase Lipase 303 H Ur Bilirubin Confirm Positive H Urine RBC 0-1/hpf Urine WBC 0-1/hpf Ur Squamous Epith Cells 1-5 /hpf Urine Bacteria Moderate (10-30) H Urine Mucus 1+ H Ur Culture Indicated? Cult not indicated Vol Urine Centrifuged 10ml (spun) 06/24/25 06/24/25 06:58 Unknown WBC 13.3 H RBC 4.51 Hgb 13.5 Hct 40.0 MCV 88.7 MCH 30.0 MCHC 33.8 RDW 14.3 Plt Count 347 Neut % (Auto) Lymph % (Auto) [place] % (Auto) Eos % (Auto) Baso % (Auto) Neut # (Auto) Lymph # (Auto) [place] # (Auto) Eos # (Auto) Baso # (Auto) PT 12.4 INR 1.1 APTT 30 Sodium 138 Potassium 4.4 Chloride 107 Carbon Dioxide 20 L BUN 12 Creatinine 0.73 Estimated GFR > 60 BUN/Creatinine Ratio 16.4 Glucose 104 H Calcium 8.7 Magnesium Total Bilirubin 2.2 H AST 326 H ALT 630 H Alkaline Phosphatase 172 H Ammonia < 9 L Total Protein 6.9 Albumin 3.8 Globulin 3.1 Albumin/Globulin Ratio 1.2 Amylase 104 Lipase Ur Bilirubin Confirm Urine RBC Urine WBC Ur Squamous Epith Cells Urine Bacteria Urine Mucus Ur Culture Indicated? Vol Urine Centrifuged [facility] Medical History (Updated 06/23/25 @ 23:03 by Alex Choe DO) Alcoholism Social History household members: family Smoking Status: Former smoker alcohol intake: former Assessment & Plan Time-Based Coding :: [TOTAL MINUTES] spent with patient and on the chart (including review of chart, obtaining history, exam, reviewing outside data, placing orders, documenting exam and treatment plan, and counseling patient) on [DATE].
--- NOTE | 2025-06-24 12:36 | P.PN_ITS ---
Subjective Subjective Date Patient Seen: 06/24/25 Time Patient Seen: 12:30 Interval history: Patient is seen in her room she had her MRCP performed which shows cholecystitis with cholelithiasis but has a massively dilated common bile duct with multiple stones in the head of the pancreas near the sphincter of Oddi. Discussed with the patient the findings need to be transferred to a hospital that has ERCP capabilities remove the stones and then would remove the gallbladder afterwards. If we tried to remove the gallbladder at this time they do the ERCP that could possibly dislodged the clips from the cholecystectomy. Recommend ERCP 1st all questions were answered patient's satisfaction we will try to transfer this date if anatomy of the transfer today which started on clear liquid diet and transfer in the a.m.. All questions were answered to patient's satisfaction. Exam Vital Signs (past 8 hours): - 06/24/25 05:00 06/24/25 08:05 Temperature 97.8 F 96.7 F L Pulse Rate 46 L 52 L Respiratory Rate 16 18 Blood Pressure 139/77 114/78 Pulse Oximetry 94 96 Oxygen Flow Rate 0 0 Oxygen Delivery Method Room Air Oxygen Flow Rate 0 Objective Labs 06/24/25 06:58 06/24/25 06:58 Labs: Laboratory Results - last 24 hr 06/23/25 06/23/25 06/23/25 17:06 19:28 19:33 WBC 10.5 RBC 4.81 Hgb 14.2 Hct 42.7 MCV 88.9 MCH 29.6 MCHC 33.3 RDW 14.4 Plt Count 374 Neut % (Auto) 76.2 H Lymph % (Auto) 15.7 L [place] % (Auto) 6.9 Eos % (Auto) 0.5 L Baso % (Auto) 0.7 Neut # (Auto) 8000 H Lymph # (Auto) 1600 [place] # (Auto) 700 Eos # (Auto) 0 Baso # (Auto) 100 PT INR APTT Sodium 137 Potassium 4.0 Chloride 104 Carbon Dioxide 24 BUN 14 Creatinine 0.83 Estimated GFR > 60 BUN/Creatinine Ratio 16.9 Glucose 111 H Calcium 9.3 Magnesium 1.8 Total Bilirubin 2.9 H AST 640 H ALT 829 H Alkaline Phosphatase 193 H Ammonia Total Protein 7.8 Albumin 4.3 Globulin 3.5 Albumin/Globulin Ratio 1.2 Amylase Lipase 303 H Ur Bilirubin Confirm Positive H Urine RBC 0-1/hpf Urine WBC 0-1/hpf Ur Squamous Epith Cells 1-5 /hpf Urine Bacteria Moderate (10-30) H Urine Mucus 1+ H Ur Culture Indicated? Cult not indicated Vol Urine Centrifuged 10ml (spun) Urine Test Negative 06/24/25 06/24/25 06:58 Unknown WBC 13.3 H RBC 4.51 Hgb 13.5 Hct 40.0 MCV 88.7 MCH 30.0 MCHC 33.8 RDW 14.3 Plt Count 347 Neut % (Auto) Lymph % (Auto) [place] % (Auto) Eos % (Auto) Baso % (Auto) Neut # (Auto) Lymph # (Auto) [place] # (Auto) Eos # (Auto) Baso # (Auto) PT 12.4 INR 1.1 APTT 30 Sodium 138 Potassium 4.4 Chloride 107 Carbon Dioxide 20 L BUN 12 Creatinine 0.73 Estimated GFR > 60 BUN/Creatinine Ratio 16.4 Glucose 104 H Calcium 8.7 Magnesium Total Bilirubin 2.2 H AST 326 H ALT 630 H Alkaline Phosphatase 172 H Ammonia < 9 L Total Protein 6.9 Albumin 3.8 Globulin 3.1 Albumin/Globulin Ratio 1.2 Amylase 104 Lipase Ur Bilirubin Confirm Urine RBC Urine WBC Ur Squamous Epith Cells Urine Bacteria Urine Mucus Ur Culture Indicated? Vol Urine Centrifuged Urine Test [facility] Medical History (Updated 06/23/25 @ 23:03 by Alex Choe DO) Alcoholism Social History household members: family Smoking Status: Former smoker alcohol intake: former Assessment & Plan Time-Based Coding :: [TOTAL MINUTES] spent with patient and on the chart (including review of chart, obtaining history, exam, reviewing outside data, placing orders, documenting exam and treatment plan, and counseling patient) on [DATE]. [employer] Document charge(s): Yes
--- NOTE | 2025-06-24 12:43 | CM.DANOTE ---
Initial DCP Assessment Note Pt is a 50 yo female, resident of [place], presents with abd pain, admitted by hospitalist for further work up, surgeon consulted. PMH includes heavy alcohol use, sober since October 2024. Reviewed chart, pt discussed in multidisciplinary rounds this morning. MRCP and Ultrasound pending today. Patient lives independently with her family, works for [employer]. No barriers identified at this time to patient's safe discharge home w/family to assist as needed ; close outpatient f/u recommended. Social work team will plan to follow clinical course closely in case any DC needs or concerns arise. CINDY Vasquez Discharge Planning/Care Management CM Discharge Assessment Start: 06/23/25 23:54 Freq: Status: Active Protocol: Document 06/24/25 12:40 XOCHITL (Rec: 06/24/25 12:43 [email or web address] [id number]) Discharge Planning Assessment Assigned Discharge CINDY Patterson Receiving Checker Provider Diana Padilla, [facility] Insurance Comment [facility] DPOA/Assigned Laureen León, mother Designee Name Contact Information P [phone] Advance Directives? No History Provided By Patient Prior Living Apartment/Condo Arrangements Household Members family Type of Drives own vehicle transporation used prior to admit Independent with ADL Yes 's Is patient alert and Yes oriented? Discharge Plan Home Transportation Family Arrangement Referrals Initiated None needed
[2025-06-24 20:21] VITALS: BP 149/77; PULSE 62; RESP 18; TEMP 36.3; O2SAT 96
--- NOTE | 2025-06-24 22:54 | PC.NURSE ---
Report called to Brissa WILD at [facility] at [phone]. Transport scheduled for 2345. at bedside.
--- NOTE | 2025-06-25 11:28 | P.DS_ITS ---
History of Present Illness History of Present Illness Date Patient Seen: 06/24/25 Chief complaint: abd pain, nausea, vomiting Narrative: Chief complaint: Acute abdominal pain elevated liver enzymes secondary to common bile duct stones History of present illness: 06/23: 50-year-old female with past medical history of alcohol abuse but been sober since October 2024, GERD presents with complaint of abdominal pain. Per the patient's report, the patient has lost about 70 pounds since October of this year. The patient however started to have acute onset of abdominal pain that started a few days ago. The patient described her pain as right upper quadrant, severe, sharp, associate with food intake and nonradiating. The patient does have some increasing abdominal bloating associated with some nausea and dry heaving. The patient states that she has been having this pain intermittently over the last few months but has not been evaluated. Otherwise the patient denies any fever, chills, chest pain, shortness of breath, dysuria or GI bleed. In our emergency room, the patient was hemodynamically stable. Labs were relatively benign except for a bilirubin of 2.9 AST of 640 ALT of 829 alk phos of 193 lipase of 303. UA is negative for UTI. CT abdomen shows cholelithiasis without appearance of acute cholecystitis there is no biliary or ductal dilatation Dr. Choe from general surgery was consulted and recommend that we admit the patient for abdominal ultrasound and also MRCP to rule out common duct pathology in the morning. He also would want to check serum ammonia and test. Zosyn was also empirically started. Hospital course: 06/24: MRCP demonstrates multiple distal common bile duct stones acute cholecystitis with gallbladder distention gallbladder wall thickening and edema and impacted gallstones in the gallbladder neck Overnight the patient was transferred to [facility] and [place] Review of systems: No chest pain shortness for No urinary symptom No neurologic Physical exam: Middle-aged female appearing ill and pale HEENT unremarkable Heart rate and rhythm regular Lungs clear Abdomen diffuse tenderness but greatest tenderness right upper quadrant scant bowel sounds distant Extremities no edema Assessment and plan: Acute cholecystitis with acute choledocholithiasis gallstones in the bladder neck * Transfer for ERCP cholecystectomy can be done either at the site or ERCP and transfer back and cholecystectomy here * IV antibiotic coverage * No current signs of acute cholangitis but this could develop DVT prophylaxis: * Not indicated except SCDs Disposition: * Patient transferred to [facility] for ERCP and management Time based billin minutes were involved in the management of this patient including [id number] evaluation physical evaluation of the patient in her presence multiple consultations with General surgery referral out for transfer for ERCP direct view of imaging and objective laboratory findings Discharge Providers Provider Date of admission: 06/23/25 23:06 Discharge Date: 06/25/25 Primary care physician: Doctor Khalif MD Consults: 06/24/25 23:08 Consult to Tele-bus driver/monitor Routine Comment: Consulting Provider: [employer] Reason for consultation: Director Of Programming services Discharge provider: Rogelio Weems MD Exam Vital Signs (past 8 hours): Oxygen Delivery Method Room Air Oxygen Flow Rate 0 Objective Labs 06/24/25 06:58 06/24/25 06:58 Labs: Laboratory Results - last 24 hr 06/23/25 17:06 Urine Test Negative [facility] Medical History (Updated 06/23/25 @ 23:03 by Alex Choe DO) Alcoholism Social History household members: family Smoking Status: Former smoker alcohol intake: former Discharge Plan Discharge Plan Patient Disposition: [facility] Other facility: [facility] Discharge Data Primary Care Provider: Doctor Khalif
== END 2025-06-25 01:30 | disposition short-term general hospital (02) | DRG 446 ==
LOC: ED 23:05 → AC 23:10
PROVIDERS: Surgery; Admitting Provider Internal Medicine; Emergency Provider Emergency Medicine; Referring Provider Emergency Medicine; Visit Provider Internal Medicine
DX: K80.62 Calculus of gallbladder and bile duct with acute cholecystitis without obstruction (principal); K76.0 Fatty (change of) liver, not elsewhere classified; D25.9 Leiomyoma of uterus, unspecified; K21.9 Gastro-esophageal reflux disease without esophagitis; F10.11 Alcohol abuse, in remission; Z87.891 Personal history of nicotine dependence
CPT/HCPCS: 36415; 74177; 74183; 80053; 81003; 81015; 81025; 82140; 82150; 83690; 83735; 85025; 85027; 85610; 85730; 93005; 96365; 96375; 99284; A9579; J1171; J2060; J2270; J2405; J2543; Q9967